=== PATIENT | male | born 1995 | race Caucasian/White ===

== ENCOUNTER 2019-11-24 21:17 | Inpatient (IN) | payer MEDICAID ==
[~2019-11-24] VITALS: Ht 182.9 cm; Wt 75.0 kg
[~2019-11-24 21:17] MED LIST: BACDS PO; DOCU-20 PO; IBUP-1985 PO; NO HOME MEDS
[2019-11-24] MEDS ORDERED: acetaminophen 325mg tablet PO ONE (21:30)
[2019-11-24 22:06] LABS: BASOPHILS # (AUTO) 0.1 X10'3 (0-0.2); BASOPHILS % (AUTO) 0.4 % (0-1); EOSINOPHILS % (AUTO) 0 % (0-6); HEMATOCRIT 40.6 % (42.0-52.0); HEMOGLOBIN 14.1 g/dl (14.0-17.9); LYMPHOCYTES # (AUTO) 0.4 X10'3 (1.1-4.8); LYMPHOCYTES % (AUTO) 2.3 % (21-51); MEAN CORPUSCULAR HEMOGLOBIN 30.4 PG (27.0-31.0); MEAN CORPUSCULAR HGB CONC 34.6 g/dL (33.0-36.5); MEAN CORPUSCULAR VOLUME 87.7 FL (78-98); MEAN PLATELET VOLUME 7.6 FL (7.4-10.4); MONOCYTES # (AUTO) 0.9 X10'3 (0-0.9); MONOCYTES % (AUTO) 5.2 % (2-12); NEUTROPHILS % (AUTO) 92.1 % (42-75); PLATELET COUNT 224 X10'3 (140-440); RED BLOOD COUNT 4.63 X10'6 (4.70-6.10); RED CELL DISTRIBUTION WIDTH 13.3 % (11.5-14.5); WHITE BLOOD COUNT 16.3 X10'3 (4.5-11.0)
[2019-11-24 22:14] LABS: ALANINE AMINOTRANSFERASE 57 U/L (12-78); ALBUMIN 3.5 G/DL (3.4-5.0); ALBUMIN/GLOBULIN RATIO 0.8 (1.1-1.5); ALKALINE PHOSPHATASE 78 IU/L (46-116); ANION GAP 10 (8-16); ASPARTATE AMINO TRANSFERASE 64 U/L (10-37); BILIRUBIN,TOTAL 0.8 MG/DL (0.1-1.0); BLOOD UREA NITROGEN 10 MG/DL (7-18); BUN/CREATININE RATIO 10.4 (5.4-32.0); CALCIUM 8.6 MG/DL (8.5-10.1); CHLORIDE 91 MMOL/L (99-107); CREATININE 0.96 MG/DL (0.60-1.10); GLUCOSE 129 MG/DL (70-104); POTASSIUM 3.5 MMOL/L (3.5-5.1); SODIUM 127 MMOL/L (135-145); TOTAL CARBON DIOXIDE 26.4 MMOL/L (24-32); eGFR > 90 ML/MIN
[2019-11-24] MEDS ORDERED: vancomycin/NS 1 GM ADD-VANTAGE 250 ML IV ONE (22:20)
[2019-11-24] MEDS ORDERED: normal saline 1000ML IV soln IV ONE (22:20)
[2019-11-24] MEDS ORDERED: piperacillin/tazo 3.375gm/50ml 50 ML IV ONE (22:20)
[2019-11-24] MEDS ORDERED: morphine 4 MG/ML inj SYRINge IV ONE (22:30)
[2019-11-24] MEDS ORDERED: iohexol 300mg/ml 100ml inj. ONE (22:30)
[2019-11-24] MEDS ORDERED: ondansetron/PF 4mg/2ml inj IV ONE (22:30)
--- NOTE | 2019-11-24 22:44 | NUR ---
PT TO CT WITH [employer]
[2019-11-24] MEDS ORDERED: enoxaparin 100mg/ml syringe SUBCUT ONE (23:50)
[2019-11-25 00:17] LABS: CLARITY,URINE CLEAR (Clear); GLUCOSE, URINE NEGATIVE (Neg); KETONES,URINE 15 mg/dl (Neg); LEUKOCYTE ESTERASE ,URINE NEGATIVE (Neg); NITRITES, URINE NEGATIVE (Neg); OCCULT BLOOD,URINE NEGATIVE (Neg); PH,URINE 8.5 (4.8-8.0); PROTEIN,URINE 30 mg/dl (Neg); UROBILINOGEN,URINE >=8.0 E.U/dL (0.2-1.0)
[2019-11-25 00:21] LABS: COLOR,URINE DARK YELLOW (Yellow); UA COLLECTION TYPE CLN CATCH MIDSTREAM
[2019-11-25 00:27] LABS: BACTERIA,URINE NONE SEEN /HPF (Neg); RBC,URINE 0-2 /HPF (0-2); URINE AMPHETAMINE SCREEN POSITIVE (Neg); URINE BARBITUATE SCREEN NEGATIVE (Neg); URINE BENZODIAZEPINES SCREEN POSITIVE (Neg); URINE CANNABINOID SCREEN POSITIVE (Neg); URINE COCAINE SCREEN NEGATIVE (Neg); URINE METHADONE SCREEN NEGATIVE (Neg); URINE OPIATE SCREEN POSITIVE (Neg); URINE PHENCYCLIDINE SCREEN NEGATIVE (Neg); WBC,URINE NONE SEEN /HPF (0-4)
[2019-11-25 00:28] LABS: HYALINE CASTS 0-3 /LPF (NEGATIVE); SQUAMOUS EPITHELIAL CELL,UR NONE SEEN /LPF (FEW)
[2019-11-25] MEDS ORDERED: ondansetron/PF 4mg/2ml inj IV PRN (00:30)
[2019-11-25] MEDS ORDERED: acetaminophen 325mg tablet PO PRN ×2 (00:30)
[2019-11-25] MEDS ORDERED: bisacodyl 10mg suppository rectal RC PRN (00:30)
[2019-11-25] MEDS ORDERED: magnesium 2GM in 50ml NS 50 ML IV PRN (00:30)
[2019-11-25] MEDS ORDERED: magnesium 4gm in 100ml NS 100 ML IV PRN (00:30)
[2019-11-25] MEDS ORDERED: magnesium Cl slow-release 64mg tablet PO PRN (00:30)
[2019-11-25] MEDS ORDERED: potassium Cl 20 mEq SR tablet PO PRN (00:30)
[2019-11-25] MEDS ORDERED: mag hydrox/Alum hydrox/simeth 30ml oral suspension PO PRN (00:30)
[2019-11-25] MEDS ORDERED: metoclopramide 5 mg/ml inj IV PRN (00:30)
[2019-11-25] MEDS ORDERED: potassium CL 10mEq/100ml bag 100 ML IV PRN ×2 (00:30)
[2019-11-25] MEDS ORDERED: HYDROcodone/acetaminophen 5mg/325mg tablet PO PRN (00:30)
[2019-11-25] MEDS ORDERED: magnesium hydroxide 30ml (MOM) UD suspension PO PRN (00:30)
--- NOTE | 2019-11-25 01:01 | NUR ---
Received report from Shira Bartlett RN. Patient to follow shortly.
--- NOTE | 2019-11-25 01:15 | NUR ---
Patient arrived to floor via gurney from the ER. Pt. able to ambulate to bed. In no obvious distress at this time.
[2019-11-25 01:40] VITALS: BP 109/56
[2019-11-25] MEDS: nicotine 14mg patch - 24hr TD SCH ×2 (01:42→08:00)
[2019-11-25] MEDS: normal saline 1000ml 1,000 ML IV SCH ×4 (01:44→23:13)
--- NOTE | 2019-11-25 02:43 | NUR ---
Patient did not want to put on a hospital gown and refused at this time for a 2 RN skin check to be performed. Pt. also stated that he did not want to answer any question at this time for the DART process. He did however allow nurse to collect MRSA swab.
--- NOTE | 2019-11-25 03:18 | NUR ---
Have paged as pt. still has elevated temp of 102.3 after he received 2 x tylenol .(Down very slightly from 102.8)
--- NOTE | 2019-11-25 05:30 | NUR ---
Retook temperature, which is now 101.0
--- NOTE | 2019-11-25 06:19 | NUR ---
Patient in room [facility] 348. I have received report from Ana HAQUE and had the opportunity to ask questions and assume patient care.
--- NOTE | 2019-11-25 06:22 | NUR ---
Problems reprioritized. Patient report given, questions answered & plan of care reviewed with Whit HAQUE.
[2019-11-25 07:00] VITALS: BP 117/63
--- NOTE | 2019-11-25 07:09 | NUR ---
Patients temp 102.8 oral to early for tylenol placed cool washcloth on patients forehead and neck and also icepacks in armpits. Will continue to monitor.
[2019-11-25] MEDS ORDERED: vancomycin/NS 1 GM ADD-VANTAGE 250 ML IV SCH (08:00)
[2019-11-25] MEDS: K and/or MAG REPLACEMENT MC SCH ×2 (08:00→19:34)
[2019-11-25] MEDS: piperacillin/tazo 3.375gm/50ml 50 ML IV SCH ×2 (08:34→16:23)
[2019-11-25] MEDS: enoxaparin 50mg/0.5ml (from 3ml vial) syringe SUBCUT SCH ×2 (08:37→19:25)
[2019-11-25 10:24] LABS: BASOPHILS # (AUTO) 0.1 X10'3 (0-0.2); BASOPHILS % (AUTO) 0.5 % (0-1); EOSINOPHILS % (AUTO) 0 % (0-6); HEMATOCRIT 38.6 % (42.0-52.0); HEMOGLOBIN 13.3 g/dl (14.0-17.9); LYMPHOCYTES # (AUTO) 0.5 X10'3 (1.1-4.8); LYMPHOCYTES % (AUTO) 4.2 % (21-51); MEAN CORPUSCULAR HEMOGLOBIN 30.7 PG (27.0-31.0); MEAN CORPUSCULAR HGB CONC 34.4 g/dL (33.0-36.5); MEAN CORPUSCULAR VOLUME 89.4 FL (78-98); MEAN PLATELET VOLUME 8.2 FL (7.4-10.4); MONOCYTES # (AUTO) 0.6 X10'3 (0-0.9); NEUTROPHILS # (AUTO) 11.6 X10'3 (1.8-7.7); NEUTROPHILS % (AUTO) 90.3 % (42-75); PLATELET COUNT 181 X10'3 (140-440); RED BLOOD COUNT 4.32 X10'6 (4.70-6.10); RED CELL DISTRIBUTION WIDTH 13.1 % (11.5-14.5); WHITE BLOOD COUNT 12.9 X10'3 (4.5-11.0)
--- NOTE | 2019-11-25 10:34 | NUR ---
PAGER ID: [phone] MESSAGE: Whit-[facility] [id number] Re: Ed SwannA Please call have positive blood culture results
--- NOTE | 2019-11-25 10:58 | NUR ---
PAGER ID: [phone] MESSAGE: Whit-Surg [id number] Re: Ed SwannA please call Re: blood cultures
[2019-11-25 11:00] VITALS: BP 142/68
--- NOTE | 2019-11-25 11:03 | NUR ---
Dr Monahan aware patient looks very sick and Per Dr Monahan he will be by soon to see patient.
[2019-11-25 11:04] LABS: ALANINE AMINOTRANSFERASE 87 U/L (12-78); ALBUMIN 2.8 G/DL (3.4-5.0); ALBUMIN/GLOBULIN RATIO 0.7 (1.1-1.5); ALKALINE PHOSPHATASE 86 IU/L (46-116); ANION GAP 9 (8-16); ASPARTATE AMINO TRANSFERASE 86 U/L (10-37); BLOOD UREA NITROGEN 9 MG/DL (7-18); BUN/CREATININE RATIO 9.1 (5.4-32.0); CALCIUM 7.8 MG/DL (8.5-10.1); CHLORIDE 96 MMOL/L (99-107); CREATININE 0.99 MG/DL (0.60-1.10); GLUCOSE 135 MG/DL (70-104); POTASSIUM 3.2 MMOL/L (3.5-5.1); SODIUM 131 MMOL/L (135-145); TOTAL CARBON DIOXIDE 26.3 MMOL/L (24-32); TOTAL PROTEIN 6.7 G/DL (6.4-8.2); eGFR > 90 ML/MIN
--- NOTE | 2019-11-25 11:05 | NUR ---
no new labs today
[2019-11-25] MEDS: potassium Cl 20 mEq SR tablet PO PRN ×3 (11:34→20:38)
[2019-11-25] MEDS: vancomycin/NS 1 GM ADD-VANTAGE 250 ML IV SCH ×2 (11:34→23:06)
[2019-11-25] MEDS: HYDROcodone/acetaminophen 10/325mg tab PO PRN ×3 (11:46→23:12)
[2019-11-25 12:11] LABS: ABG BASE EXCESS -0.4 mmol/L (-2.0-2.0); ABG HCO3 21.8 mmol/L (22.0-26.0); ABG OXYGEN SATURATION 93.8 % (94-97); ABG PCO2 (T) 30.1 mmHg (35.0-48.0); ABG PO2 (T) 65.8 mmHg (75.0-100.0); ALLEN'S TEST POSITIVE; FCOHb 0.7 % (0.0-3.9); FLOW 2 L/min; FO2Hb 93.1 % (94-97); PATIENT TEMPERATURE 37.6; TOTAL HEMOGLOBIN 13.5 G/dl (14.0-18.0)
--- NOTE | 2019-11-25 12:15 | NUR ---
PAGER ID: [phone] MESSAGE: Whit-S[facility] [phone] Re: Ed JOSEPH's back
--- NOTE | 2019-11-25 12:21 | NUR ---
Dr Monahan aware of ABG results and that we are still waiting for a room for Tele monitoring.
--- NOTE | 2019-11-25 14:28 | NUR ---
Noted that pt with a low BMI of 15.6 though no documented scaled weight and no reliable wt hx in EMR. Pt on a regular diet documented with only 100% PO intake of milk for breakfast and refused lunch. Per physical assessment pt A/O x 2 and sleepy. Pt seen sleeping at bedside, no visible fat or muscle wasting. Pt with no documented significant decrease in muscle strength or edema other than left arm 3+ edema where pt has used IV drugs per H&P. No concerns for malnutrition at this time. Will continue to follow. Addendum: 11/25/19 at [address] Amended: Links added.
--- NOTE | 2019-11-25 16:02 | NUR ---
PAGER ID: [phone] MESSAGE: Whit-[facility] [id number] Re: Ed please call temp 100.7 HR 122 BP 122/73 IV infiltrated still no bed on tele looking at ortho patient withdrawing please call Addendum: 11/25/19 at 1607 by Whit Teresa RN Per Dr Monahan give him a one time dose of 325Mg PO Tylenol due to patient just received [address] Monahan also aware PICC Rn is here trying to get an IV in patient due to left hand PIV infiltrated. Dr Monahan still wants patient to be placed on Tele monitor either on O/N or Tele.
[2019-11-25] MEDS ORDERED: acetaminophen 325mg tablet PO ONE (16:05)
[2019-11-25 16:08] VITALS: BP 122/73
[2019-11-25] MEDS: LORazepam 2 mg/ml vial IV PRN ×2 (16:24→23:04)
--- NOTE | 2019-11-25 17:12 | NUR ---
PAGER ID: [phone] MESSAGE: Whit-[facility] [id number] Re: Ed SwannA PIC RN wants you to be aware she has concerns with the swelling in patients left arm please call Addendum: 11/25/19 at 1725 by Whit Teresa RN correction Right arm from IV infiltration . Dr Monahan came to the floor and swelling had gone down in right forearm and Right hand is still swollen wrapped in warm blanket and elevated will continue to monitor.
--- NOTE | 2019-11-25 18:50 | NUR ---
Received report from SHABNAM Sherman. Patient awake and alert on room air, in no apparent distress. Call light and items of frequent use within reach. Will continue to monitor.
--- NOTE | 2019-11-25 19:00 | NUR ---
Patient in room [facility] 348. I have received report from Gayathri HAQUE and Hedy HAQUE and had the opportunity to ask questions and assume patient care.
--- NOTE | 2019-11-25 19:05 | NUR ---
Patient in room [facility] 348. I have received report from Whit HAQUE and had the opportunity to ask questions and assume patient care.
[2019-11-25 19:11] VITALS: BP 110/55
[2019-11-25] MEDS: lactobacillus rhamnosus 10,000 MMU CELLS/CAPSULE PO SCH (19:24)
--- NOTE | 2019-11-25 20:23 | NUR ---
Report given to Ana HAQUE on PCU. Pt will be transferred to room 3016A with all his belongings.
--- NOTE | 2019-11-25 20:50 | NUR ---
Received report form Med/manager surgicalSHABNAM Knott. Patient to follow shortly.
--- NOTE | 2019-11-25 20:58 | NUR ---
Transported patient off to PCU room 3017X with SHABNAM Knott. SHABNAM Perez received patient. In no apparent distress noted.
--- NOTE | 2019-11-25 20:58 | NUR ---
Transferred pt with his belongings, on his bed. Ana HAQUE was at bedside to accept the pt. Pt had no signs of distress.
[2019-11-25] MEDS ORDERED: temazepam 15mg capsule PO PRN (21:00)
--- NOTE | 2019-11-25 21:30 | NUR ---
Patient arrived to floor via bed, in no distress/pain at around 2100. Have reviewed previous assessment and agree with findings.
[2019-11-26] MEDS: piperacillin/tazo 3.375gm/50ml 50 ML IV SCH ×2 (01:55→08:56)
[2019-11-26 04:00] VITALS: BP 112/71
[2019-11-26] MEDS: HYDROcodone/acetaminophen 10/325mg tab PO PRN ×3 (04:04→20:50)
[2019-11-26] MEDS: LORazepam 2 mg/ml vial IV PRN ×2 (04:10→08:57)
[2019-11-26 06:03] LABS: BASOPHILS # (AUTO) 0.1 X10'3 (0-0.2); BASOPHILS % (AUTO) 0.5 % (0-1); EOSINOPHILS % (AUTO) 0 % (0-6); HEMATOCRIT 35.7 % (42.0-52.0); HEMOGLOBIN 12.5 g/dl (14.0-17.9); LYMPHOCYTES # (AUTO) 0.6 X10'3 (1.1-4.8); LYMPHOCYTES % (AUTO) 5.3 % (21-51); MEAN CORPUSCULAR HGB CONC 35.1 g/dL (33.0-36.5); MEAN CORPUSCULAR VOLUME 88.3 FL (78-98); MEAN PLATELET VOLUME 8.6 FL (7.4-10.4); MONOCYTES # (AUTO) 0.7 X10'3 (0-0.9); MONOCYTES % (AUTO) 6.5 % (2-12); NEUTROPHILS # (AUTO) 9.8 X10'3 (1.8-7.7); NEUTROPHILS % (AUTO) 87.7 % (42-75); PLATELET COUNT 199 X10'3 (140-440); RED BLOOD COUNT 4.04 X10'6 (4.70-6.10); RED CELL DISTRIBUTION WIDTH 13.7 % (11.5-14.5); WHITE BLOOD COUNT 11.2 X10'3 (4.5-11.0)
[2019-11-26 06:06] LABS: ALANINE AMINOTRANSFERASE 61 U/L (12-78); ALBUMIN 2.4 G/DL (3.4-5.0); ALBUMIN/GLOBULIN RATIO 0.6 (1.1-1.5); ALKALINE PHOSPHATASE 87 IU/L (46-116); ANION GAP 7 (8-16); ASPARTATE AMINO TRANSFERASE 52 U/L (10-37); BILIRUBIN,TOTAL 0.9 MG/DL (0.1-1.0); BLOOD UREA NITROGEN 8 MG/DL (7-18); BUN/CREATININE RATIO 10.5 (5.4-32.0); CALCIUM 7.9 MG/DL (8.5-10.1); CHLORIDE 101 MMOL/L (99-107); CREATININE 0.76 MG/DL (0.60-1.10); GLUCOSE 127 MG/DL (70-104); MAGNESIUM 1.8 MG/DL (1.5-2.4); POTASSIUM 3.4 MMOL/L (3.5-5.1); SODIUM 133 MMOL/L (135-145); TOTAL CARBON DIOXIDE 25.4 MMOL/L (24-32); TOTAL PROTEIN 6.3 G/DL (6.4-8.2); eGFR > 90 ML/MIN
--- NOTE | 2019-11-26 06:30 | NUR ---
Problems reprioritized. Patient report given, questions answered & plan of care reviewed with Caryn HAQUE and nursing project coordinator. Patient is sleeping, bed low and rails x2 up.
[2019-11-26 07:35] VITALS: BP 111/54
[2019-11-26] MEDS: nicotine 14mg patch - 24hr TD SCH (08:00)
[2019-11-26] MEDS: K and/or MAG REPLACEMENT MC SCH ×2 (08:00→20:00)
[2019-11-26] MEDS: lactobacillus rhamnosus 10,000 MMU CELLS/CAPSULE PO SCH ×2 (08:56→20:51)
[2019-11-26] MEDS: potassium Cl 20 mEq SR tablet PO PRN ×3 (08:56→20:51)
[2019-11-26] MEDS: enoxaparin 50mg/0.5ml (from 3ml vial) syringe SUBCUT SCH ×2 (08:57→20:51)
[2019-11-26 11:17] VITALS: BP 126/70
[2019-11-26] MEDS ORDERED: VANCOMYCIN LEVEL IV ONE (11:30)
[2019-11-26] MEDS ORDERED: iohexol 350MG/ML 100ml bottle IV ONE (11:32)
[2019-11-26] MEDS: methadone 10mg tablet PO SCH ×2 (11:52→17:58)
[2019-11-26] MEDS: normal saline 1000ml 1,000 ML IV SCH (13:42)
[2019-11-26] MEDS: vancomycin/NS 1 GM ADD-VANTAGE 250 ML IV SCH (13:42)
--- NOTE | 2019-11-26 14:49 | NUR ---
Report called to SHABNAM Mar on O/N. patient transferred. all belongings to 402.
[2019-11-26 14:55] VITALS: BP 134/74
--- NOTE | 2019-11-26 15:05 | NUR ---
PAGER ID: [phone] MESSAGE: Isabela [id number] re Mr Jesus Ramirez now in 4021b- c/o right sided CP 09/14, (states present since admission) RR is 28-30 please call me when you can
[2019-11-26 18:00] VITALS: BP 120/66
--- NOTE | 2019-11-26 18:01 | NUR ---
Patient in room [facility]TH[facility] 4021. I have received report from Isabela HAQUE and had the opportunity to ask questions and assume patient care.
[2019-11-26] MEDS: VANCOmycin 1250MG/NS 250ml Bag 250 ML IV SCH (20:52)
[2019-11-26 22:00] VITALS: BP 126/74
[2019-11-27] MEDS: methadone 10mg tablet PO SCH ×2 (00:05→07:44)
[2019-11-27] MEDS: LORazepam 2 mg/ml vial IV PRN ×3 (00:27→09:54)
[2019-11-27] MEDS: VANCOmycin 1250MG/NS 250ml Bag 250 ML IV SCH (05:00)
[2019-11-27] MEDS: HYDROcodone/acetaminophen 10/325mg tab PO PRN ×2 (05:09→09:54)
[2019-11-27 06:00] VITALS: BP 113/65
--- NOTE | 2019-11-27 06:14 | NUR ---
Problems reprioritized. Patient report given, questions answered & plan of care reviewed with SHABNAM Quinn.
[2019-11-27 06:25] LABS: BASOPHILS # (AUTO) 0.1 X10'3 (0-0.2); BASOPHILS % (AUTO) 0.6 % (0-1); EOSINOPHILS # (AUTO) 0.1 X10'3 (0-0.9); HEMATOCRIT 34.5 % (42.0-52.0); HEMOGLOBIN 12.1 g/dl (14.0-17.9); LYMPHOCYTES # (AUTO) 1.4 X10'3 (1.1-4.8); LYMPHOCYTES % (AUTO) 13.7 % (21-51); MEAN CORPUSCULAR HGB CONC 35.1 g/dL (33.0-36.5); MEAN CORPUSCULAR VOLUME 88.3 FL (78-98); MONOCYTES # (AUTO) 0.9 X10'3 (0-0.9); MONOCYTES % (AUTO) 9.1 % (2-12); NEUTROPHILS # (AUTO) 7.8 X10'3 (1.8-7.7); NEUTROPHILS % (AUTO) 75.6 % (42-75); PLATELET COUNT 218 X10'3 (140-440); RED BLOOD COUNT 3.91 X10'6 (4.70-6.10); RED CELL DISTRIBUTION WIDTH 13.6 % (11.5-14.5); WHITE BLOOD COUNT 10.3 X10'3 (4.5-11.0)
--- NOTE | 2019-11-27 06:37 | NUR ---
Patient in room ORTHO 4009. I have received report from Jenny/Gayathri and had the opportunity to ask questions and assume patient care.
[2019-11-27] MEDS: normal saline 1000ml 1,000 ML IV SCH (06:48)
[2019-11-27 07:03] LABS: ALANINE AMINOTRANSFERASE 47 U/L (12-78); ALBUMIN 2.4 G/DL (3.4-5.0); ALBUMIN/GLOBULIN RATIO 0.6 (1.1-1.5); ALKALINE PHOSPHATASE 79 IU/L (46-116); ANION GAP 9 (8-16); ASPARTATE AMINO TRANSFERASE 30 U/L (10-37); BILIRUBIN,TOTAL 0.7 MG/DL (0.1-1.0); BLOOD UREA NITROGEN 8 MG/DL (7-18); BUN/CREATININE RATIO 11.9 (5.4-32.0); CALCIUM 7.7 MG/DL (8.5-10.1); CHLORIDE 105 MMOL/L (99-107); CREATININE 0.67 MG/DL (0.60-1.10); GLUCOSE 89 MG/DL (70-104); MAGNESIUM 1.9 MG/DL (1.5-2.4); POTASSIUM 3.6 MMOL/L (3.5-5.1); SODIUM 138 MMOL/L (135-145); TOTAL PROTEIN 6.5 G/DL (6.4-8.2); eGFR > 90 ML/MIN
[2019-11-27] MEDS: lactobacillus rhamnosus 10,000 MMU CELLS/CAPSULE PO SCH (07:44)
[2019-11-27] MEDS: enoxaparin 50mg/0.5ml (from 3ml vial) syringe SUBCUT SCH (07:46)
[2019-11-27] MEDS: nicotine 14mg patch - 24hr TD SCH ×2 (07:48→09:54)
[2019-11-27] MEDS: K and/or MAG REPLACEMENT MC SCH (07:51)
[2019-11-27 09:59] LABS: HIV ANTIBODY 1&2 RAPID NON-REACTIVE (Neg)
--- NOTE | 2019-11-27 10:00 | NUR ---
Kai [phone] Re: Jesus Ward Patient is wanting to leave AMA right now.
--- NOTE | 2019-11-27 11:58 | NUR ---
Patient left AMA. Dr. Artemio Cuba and Dr. Monahan educated patient on the high risk of if patient leaves to hospital without ABX treatment.
[2019-11-27] MEDS ORDERED: VANCOMYCIN LEVEL IV ONE (12:30)
[2019-11-27] MEDS ORDERED: ceFAZolin 2gm in dextrose, iso 50 ML IV SCH (16:00)
[2019-11-27] MEDS ORDERED: enoxaparin 80mg/0.8ml syringe SUBCUT SCH (20:00)
== END 2019-11-27 12:00 | disposition left against medical advice (07) | DRG 720 ==
LOC: ER 21:18 → ED HOLD 11-25 00:27 → SUR 3N 11-25 01:17 → PCU 3S 11-25 20:50 → ORTHO 4S 11-26 14:30
PROVIDERS: ADMIT Family Medicine; ATTEND Family Medicine
DX: A41.89 Other specified sepsis (principal); I82.622 Acute embolism and thrombosis of deep veins of left upper extremity; E87.1 Hypo-osmolality and hyponatremia; F11.10 Opioid abuse, uncomplicated; F17.200 Nicotine dependence, unspecified, uncomplicated; L03.114 Cellulitis of left upper limb; I80.8 Phlebitis and thrombophlebitis of other sites; Z79.01 Long term (current) use of anticoagulants; Z79.899 Other long term (current) drug therapy
CPT/HCPCS: 36415; 36600; 71250; 73201; 76937; 80053; 80202; 80305; 81001; 82803; 83605; 83735; 84145; 84484; 85018; 85025; 86703; 87040; 87081; 87186; 93005; 93306; 93308; 96365; 97116; 97161; 97530; 99285; G0378; J1650; J2060; J2270; J2405; J2543; J3370; J7030; Q9967

== ENCOUNTER 2019-12-01 04:14 | Emergency (ER) | payer MEDICAID ==
[~2019-12-01] VITALS: Ht 180.3 cm; Wt 56.0 kg
[~2019-12-01 04:14] MED LIST changes: -BACDS PO; -DOCU-20 PO; -IBUP-1985 PO
[2019-12-01] MEDS ORDERED: normal saline 1000ML IV soln IV ONE (05:00)
[2019-12-01] MEDS ORDERED: piperacillin/tazo 3.375gm/50ml 50 ML IV ONE (05:00)
[2019-12-01] MEDS ORDERED: vancomycin/NS 1 GM ADD-VANTAGE 250 ML IV ONE (05:00)
[2019-12-01 05:44] LABS: BASOPHILS # (AUTO) 0.1 X10'3 (0-0.2); BASOPHILS % (AUTO) 0.4 % (0-1); EOSINOPHILS # (AUTO) 0.2 X10'3 (0-0.9); EOSINOPHILS % (AUTO) 1.3 % (0-6); HEMATOCRIT 31.5 % (42.0-52.0); HEMOGLOBIN 10.7 g/dl (14.0-17.9); LYMPHOCYTES # (AUTO) 1.6 X10'3 (1.1-4.8); LYMPHOCYTES % (AUTO) 11.4 % (21-51); MEAN CORPUSCULAR HEMOGLOBIN 30.3 PG (27.0-31.0); MEAN CORPUSCULAR HGB CONC 34.1 g/dL (33.0-36.5); MEAN PLATELET VOLUME 7.1 FL (7.4-10.4); MONOCYTES # (AUTO) 0.8 X10'3 (0-0.9); MONOCYTES % (AUTO) 5.6 % (2-12); NEUTROPHILS # (AUTO) 11.4 X10'3 (1.8-7.7); NEUTROPHILS % (AUTO) 81.3 % (42-75); PLATELET COUNT 549 X10'3 (140-440); RED BLOOD COUNT 3.53 X10'6 (4.70-6.10)
[2019-12-01 05:48] LABS: CLARITY,URINE CLEAR (Clear); COLOR,URINE YELLOW (Yellow); GLUCOSE, URINE NEGATIVE (Neg); KETONES,URINE NEGATIVE (Neg); LEUKOCYTE ESTERASE ,URINE NEGATIVE (Neg); NITRITES, URINE NEGATIVE (Neg); OCCULT BLOOD,URINE NEGATIVE (Neg); PROTEIN,URINE NEGATIVE (Neg)
[2019-12-01 05:50] LABS: UA COLLECTION TYPE VOIDED
[2019-12-01 06:04] LABS: ANION GAP 11 (8-16); BLOOD UREA NITROGEN 7 MG/DL (7-18); CHLORIDE 102 MMOL/L (99-107); CREATININE 0.68 MG/DL (0.60-1.10); GLUCOSE 101 MG/DL (70-104); SODIUM 141 MMOL/L (135-145); TOTAL CARBON DIOXIDE 28.4 MMOL/L (24-32)
[2019-12-01 06:05] LABS: ALANINE AMINOTRANSFERASE 115 U/L (12-78); ALBUMIN 2.9 G/DL (3.4-5.0); ALBUMIN/GLOBULIN RATIO 0.6 (1.1-1.5); ALKALINE PHOSPHATASE 203 IU/L (46-116); ASPARTATE AMINO TRANSFERASE 81 U/L (10-37); BILIRUBIN,TOTAL 0.5 MG/DL (0.1-1.0); BUN/CREATININE RATIO 10.3 (5.4-32.0); CALCIUM 8.5 MG/DL (8.5-10.1); MAGNESIUM 1.9 MG/DL (1.5-2.4); TOTAL PROTEIN 7.5 G/DL (6.4-8.2); TROPONIN I < 0.04 NG/ML (0.0-0.05); eGFR > 90 ML/MIN
[2019-12-01] MEDS ORDERED: morphine 4 MG/ML inj SYRINge IV ONE (06:05)
[2019-12-01] MEDS ORDERED: ondansetron/PF 4mg/2ml inj IV ONE (06:05)
--- NOTE | 2019-12-01 06:52 | NUR ---
ECHO AT BEDSIDE.
[2019-12-01] MEDS ORDERED: potassium Cl 20 mEq SR tablet PO ONE (07:10)
[2019-12-01] MEDS ORDERED: magnesium 2GM in 50ml NS 50 ML IV SCH (07:10)
[2019-12-01] MEDS ORDERED: iohexol 300mg/ml 100ml inj. ONE (09:07)
--- NOTE | 2019-12-01 09:20 | NUR ---
PT REFUSED TO GET CT SCAN AT THIS TIME .
[2019-12-01 09:34] VITALS: BP 110/66
== END 2019-12-01 09:39 | disposition left against medical advice (07) ==
LOC: ER 04:14
DX: I38 Endocarditis, valve unspecified (principal); E87.6 Hypokalemia; L03.114 Cellulitis of left upper limb; F12.10 Cannabis abuse, uncomplicated; F15.10 Other stimulant abuse, uncomplicated; F11.10 Opioid abuse, uncomplicated; Z56.0 Unemployment, unspecified; Z79.899 Other long term (current) drug therapy
CPT/HCPCS: 36415; 71045; 80053; 81003; 83605; 83735; 83880; 84145; 84484; 85025; 87040; 93005; 93308; 96365; 96366; 96367; 96368; 96375; 99285; J2270; J2405; J2543; J3370; J3475; J7030; Q9967